=== PATIENT | male | born 1970 | race Two or more races ===

== ENCOUNTER 2017-03-14 22:30 | Emergency (ER) | payer MEDICAID ==
[2017-03-15] MEDS ORDERED: LIDOCAINE 1% (MDV) 20 ML INJ SC (01:00)
[2017-03-15] MEDS: DIPHTH/TET/ACEL PERTUSS (ADULT) 0.5 ML VIAL IM* (01:27)
== END 2017-03-15 01:33 | disposition home or self-care (01) ==
LOC: FTE 22:30
DX: S61.011A Laceration without foreign body of right thumb without damage to nail, initial encounter (principal); F17.210 Nicotine dependence, cigarettes, uncomplicated; W31.0XXA Contact with mining and earth-drilling machinery, initial encounter; Y92.9 Unspecified place or not applicable
CPT/HCPCS: 12001; 90471; 90715; 99283-25

== ENCOUNTER 2017-03-20 11:18 | Emergency (ER) | payer MEDICAID | END 2017-03-20 13:40 | disposition home or self-care (01) | LOC: FTE 11:18 | DX: Z09 Encounter for follow-up examination after completed treatment for conditions other than malignant neoplasm (principal) | CPT/HCPCS: 29130; 99282-25 ==

== ENCOUNTER 2017-04-05 13:45 | Emergency (ER) | payer MEDICAID | END 2017-04-05 14:23 | disposition home or self-care (01) | LOC: FTE 13:45 → E/R 14:23 | DX: Z48.02 Encounter for removal of sutures (principal) | CPT/HCPCS: 99281; Z7502 ==

== ENCOUNTER 2017-10-05 09:19 | Emergency (ER) | payer MEDICAID | END 2017-10-05 10:31 | disposition home or self-care (01) | LOC: FTE 09:19 | DX: K62.89 Other specified diseases of anus and rectum (principal) | CPT/HCPCS: 99284; Z7502 ==